=== PATIENT | male | born 1970 | race Caucasian/White ===

== ENCOUNTER 2018-11-17 16:45 | Inpatient (IN) ==
--- NOTE | 2018-11-17 17:14 | Emergency Department Note ---
Disposition Clinical Impression: Acute opioid withdrawal, Suicidal ideation Disposition: Still a Patient Condition: Undetermined Referrals: NONE,PCP [Primary Care Provider] - Forms: ED Satisfaction Letter Time of Disposition: 20:31 Psych HPI - General Chief Complaint: ED Psychiatric Symptoms Stated Complaint: SI Time Seen by Provider: 11/17/18 16:58 Source: patient, family Mode of arrival: ambulatory Limitations: no limitations Nursing Notes Reviewed: Yes Vital Signs Reviewed: Yes - History of Present Illness HPI Narrative: 48-year-old male with no significant past medical history current every day smoker presenting for suicidal ideation. Patient states that he is currently withdrawing from painkillers which she has been addicted for several years. Patient states that when he goes within 24 hours without these drugs that he becomes suicidal. Patient admits to active ideation with a plan although he does not divulge the contents of his plan of how he wants to kill himself stating that he tries not to think about it due to having kids. Patient states that he is addicted to Percocet and Vicodin as "whenever I get my hands on." Patient states that he realized that he has a problem where he is spending all of his money on painkillers and is going to work simply to be able to afford his drugs. Patient denies homicidal ideation or active hallucinations, he admits to nausea and a feeling of generalized malaise Pt complaint: suicidal ideation, feels depressed Onset (ago): day(s) Duration: getting worse History of similar episodes: Yes Worsens with: other (Withdrawal) Alleged intoxication: No Associated Psychiatric Symptoms: depression, suicidal ideation Associated symptoms: Reports: nausea Traumatic symptoms: denies traumatic injury Treatments prior to arrival: none Self harm or harm to others: admits thoughts of self harm, has plan Review of Systems: *See History of Present Illness for more detail Constitutional: Denies: fever, chills Cardiovascular: Denies: chest pain Respiratory: Denies: dyspnea Gastrointestinal: Admits to nausea Denies: abdominal pain, vomiting, diarrhea, constipation, hematemesis, melena, hematochezia Genitourinary: Denies: hematuria Musculoskeletal: Denies: back pain, neck pain Integumentary: Denies: rash Neurological: Admits to headache and lightheadedness/dizziness Denies: weakness, numbness, paresthesias, difficulty with ambulation. Endocrine: Admits fatigue Psychiatric: Patient admits to suicidal ideation. All systems ED: reviewed and negative except as stated. Review of Systems: As Per HPI Past Medical History - Past Medical History Source: patient Physical Exam Constitutional: No acute distress, [id number], engaged to conversation, speech is fluid, answers questions appropriately Neuro: GCS 15, no overt focal neurological deficits Head: Atraumatic, normocephalic Eyes: Pupils equal, round and reactive to light, no scleral icterus, no conjunctival injection Neck: Trachea midline without deviation. Anterior neck is supple without swelling. *Chest: Symmetric chest wall rise *Heart: Cardiac rhythm and rate are regular with S1 and S2 , no S3 or S4 appreciated, no murmurs, gallops, rubs, or clicks. *Lungs: Lungs are clear to auscultation bilaterally, without accessory muscle use or prolonged expiratory phase. No wheezes, rhonchi or stridor appreciated. Abdomen: Abdomen is flat, soft to palpation, normal bowel sounds. No abdominal b ruit auscultated. Non-distended, non-rigid, no organomegaly, no ascites appreciated. No pulsatile mass, no tenderness or guarding to palpation in all four quadrants, no rebound Extremities: Normal capillary refill without evidence of pedal edema, joint swelling or erythema. Pulses/motor/sensory intact in all 4 extremities. Psychiatric exam: Patient is teary and crying in room. Appears depressed. No overt signs of hallucination. Integumentary: warm, dry, intact, normal color. No rash, cyanosis, diaphoresis, erythema, or pallor - General Limitations: no limitations General appearance: alert, in distress Course Course Narrative: [place] slipped is on file. CBC, BMP, urinalysis, urine drug screen, acetaminophen, salicylate, ethanol Psychiatric services will be consulted pending medical clearance. Vital Signs Temperature 98.6 F 11/17/18 16:50 Pulse Rate 92 11/17/18 16:50 Respiratory Rate 20 11/17/18 16:50 Blood Pressure 145/85 11/17/18 16:50 O2 Sat by Pulse Oximetry 96 11/17/18 16:50 Temperature 98.6 F 11/17/18 17:58 Pulse Rate 92 11/17/18 17:58 Respiratory Rate 20 11/17/18 17:58 Blood Pressure 145/85 11/17/18 17:58 O2 Sat by Pulse Oximetry 96 11/17/18 17:58 Oxygen Delivery Oxygen Delivery Room Air Psych - MDM Narrative Medical decision making narrative: Patient laboratories are unremarkable for acute pathology. Patient is medically cleared for psychiatric evaluation. Patient will be signed out to the care of Dr. Girish Hinds at the end of my shift. Please see documentation by this physician for further evaluation, management, and final disposition. - Lab Data Result diagrams: 11/17/18 17:36 11/17/18 17:36 Lab Results 11/17/18 11/17/18 11/17/18 Range/Units 17:36 17:36 18:37 WBC 7.4 (4.3-11.1) K/mcL RBC 5.38 (4.19-5.50) M/mcL Hgb 16.1 (12.9-16.9) g/dL Hct 47.7 (37.5-50.1) % MCV 88.7 (83.0-100.0) fL MCH 29.9 (28.0-33.3) pg MCHC 33.8 (31.6-35.5) g/dL RDW 12.6 (11.5-14.5) % Plt Count 185 (140-400) K/mcL MPV 10.0 (9.4-12.4) fL Immature Gran % 0.4 (0-4) % Seg Neutrophils % 78.4 % Lymphocytes % 14.7 % Monocytes % 5.5 % Eosinophils % 0.5 % Basophils % 0.5 % Neutrophils # 5.8 (1.6-8.9) K/mcL Lymphocytes # 1.1 (0.6-4.6) K/mcL Monocytes # 0.4 (0.0-1.3) K/mcL Eosinophils # 0.0 (0.0-0.6) K/mcL Basophils # 0.0 (0.0-0.2) K/mcL Sodium 139 (136-145) mEq/L Potassium 4.1 (3.5-5.1) mEq/L Chloride 110 H (98-107) mEq/L Carbon Dioxide 25 (23-29) mEq/L BUN 8 (6-20) mg/dL Creatinine 0.73 (0.70-1.30) mg/dL Est GFR ( Amer) > 60 (> 60) Est GFR (Non-Af Amer) > 60 (> 60) BUN/Creatinine Ratio 11 (6-26) Glucose 98 (70-105) mg/dL Calculated Osmolality 286 (280-300) Calcium 9.7 (8.6-10.3) mg/dL Urine Color Yellow (Yellow) Urine Clarity Clear (Clear) Urine pH 6.0 (5.0-8.0) pH Units Ur Specific [place] 1.012 (1.010-1.025) Urine Protein Negative (Neg-Trace) mg/dL Urine Glucose (UA) Normal (Normal) mg/dL Urine Ketones Negative (Negative) mg/dL Urine Blood Small H (Negative) Urine Nitrite Negative (Negative) Urine Bilirubin Negative (Negative) Urine Urobilinogen Normal (Normal) mg/dL Ur Leukocyte Esterase Negative (Negative) Urine Microscopic RBC 0-3 (0-3) per hpf Urine Microscopic WBC 0-3 (0-3) per hpf Ur Squamous Epith Cells Many H (None-Few) per lpf Urine Bacteria None Seen (None-Few) per hpf Hyaline Casts None Seen (None-Few) per lpf Ur Culture Indicated? NO (NO) Salicylates < 2.5 L (15.0-30.0) mg/dL Urine Opiates Screen (Sfhlsj=158) ng/mL Acetaminophen < 10 L (10-20) mcg/mL Ur Barbiturates Screen (Ueulpc=085) ng/mL Ur Phencyclidine Scrn (Cutoff=25) ng/mL Ur Amphetamines Screen (Axguyd=2333) ng/mL U Benzodiazepines Scrn (Glhkul=467) ng/mL Urine Cocaine Screen (Cutoff= 300) ng/mL U Marijuana (THC) Screen (Cutoff = 50) ng/mL Ur Drug Screen Interp Ethyl Alcohol < 10 (Less than 10) mg/dL 11/17/18 Range/Units 18:39 WBC (4.3-11.1) K/mcL RBC (4.19-5.50) M/mcL Hgb (12.9-16.9) g/dL Hct (37.5-50.1) % MCV (83.0-100.0) fL MCH (28.0-33.3) pg MCHC (31.6-35.5) g/dL RDW (11.5-14.5) % Plt Count (140-400) K/mcL MPV (9.4-12.4) fL Immature Gran % (0-4) % Seg Neutrophils % % Lymphocytes % % Monocytes % % Eosinophils % % Basophils % % Neutrophils # (1.6-8.9) K/mcL Lymphocytes # (0.6-4.6) K/mcL Monocytes # (0.0-1.3) K/mcL Eosinophils # (0.0-0.6) K/mcL Basophils # (0.0-0.2) K/mcL Sodium (136-145) mEq/L Potassium (3.5-5.1) mEq/L Chloride (98-107) mEq/L Carbon Dioxide (23-29) mEq/L BUN (6-20) mg/dL Creatinine (0.70-1.30) mg/dL Est GFR ( Amer) (> 60) Est GFR (Non-Af Amer) (> 60) BUN/Creatinine Ratio (6-26) Glucose (70-105) mg/dL Calculated Osmolality (280-300) Calcium (8.6-10.3) mg/dL Urine Color (Yellow) Urine Clarity (Clear) Urine pH (5.0-8.0) pH Units Ur Specific [place] (1.010-1.025) Urine Protein (Neg-Trace) mg/dL Urine Glucose (UA) (Normal) mg/dL Urine Ketones (Negative) mg/dL Urine Blood (Negative) Urine Nitrite (Negative) Urine Bilirubin (Negative) Urine Urobilinogen (Normal) mg/dL Ur Leukocyte Esterase (Negative) Urine Microscopic RBC (0-3) per hpf Urine Microscopic WBC (0-3) per hpf Ur Squamous Epith Cells (None-Few) per lpf Urine Bacteria (None-Few) per hpf Hyaline Casts (None-Few) per lpf Ur Culture Indicated? (NO) Salicylates (15.0-30.0) mg/dL Urine Opiates Screen Negative (Rxdqja=842) ng/mL Acetaminophen (10-20) mcg/mL Ur Barbiturates Screen Negative (Fgxyof=224) ng/mL Ur Phencyclidine Scrn Negative (Cutoff=25) ng/mL Ur Amphetamines Screen Negative (Iknpoi=1989) ng/mL U Benzodiazepines Scrn Negative (Rgmouh=103) ng/mL Urine Cocaine Screen Negative (Cutoff= 300) ng/mL U Marijuana (THC) Screen Negative (Cutoff = 50) ng/mL Ur Drug Screen Interp See Below Ethyl Alcohol (Less than 10) mg/dL Psychiatric Medical Clearance - Medical Clearance Checklist Medical History: No Social History Section defined Current Vitals: Last Vital Signs Temp 98.6 F 11/17/18 17:58 Pulse 92 11/17/18 17:58 Resp 20 11/17/18 17:58 BP 145/85 11/17/18 17:58 Pulse Ox 96 11/17/18 17:58 Psychiatric Lab Panel: Drug Levels and Toxicity 11/17/18 11/17/18 17:36 18:39 Urine Opiates Screen Negative Acetaminophen < 10 L Ur Barbiturates Screen Negative Ur Phencyclidine Scrn Negative Ur Amphetamines Screen Negative U Benzodiazepines Scrn Negative Urine Cocaine Screen Negative U Marijuana (THC) Screen Negative Ethyl Alcohol < 10 Abnormal Labs: Abnormal lab results Chloride 110 mEq/L (98-107) H 11/17/18 17:36 Small (Negative) H 11/17/18 18:37 Ur Squamous Epith Cells Many per lpf (None-Few) H 11/17/18 18:37 Salicylates < 2.5 mg/dL (15.0-30.0) L 11/17/18 17:36 Acetaminophen < 10 mcg/mL (10-20) L 11/17/18 17:36 Statement of Medical Clearance: I have evaluated the patient, reviewed diagnostic information, and certify that the patient's medical condition is sufficiently stable that transfer to the psychiatric unit does not pose a significant risk of deterioration.
[2018-11-17] MEDS ORDERED: *HR* Buprenorphine HCl 2 MG SUBLINGUAL TABLET SL STA (17:16)
--- NOTE | 2018-11-17 17:25 | Emergency Department Note ---
Disposition Clinical Impression: Acute opioid withdrawal, Suicidal ideation Disposition: Still a Patient Forms: ED Satisfaction Letter Time of Disposition: 17:26 General Adult HPI - General Chief complaint: ED Psychiatric Symptoms Stated complaint: SI Time Seen by Provider: 11/17/18 16:58 Source: patient, family Mode of arrival: ambulatory Limitations: no limitations Nursing Notes Reviewed: Yes Vital Signs Reviewed: Yes - History of Present Illness HPI Narrative: Attestation note: Patient was seen with the emergency medicine resident/nurse practitioner/physician botany laboratory assistant/transitional resident/medical student: Dr.SAMUEL HERNANDEZ I have personally performed a face to face evaluation on this patient. I have reviewed and agree with history and physical examination patient management and disposition. I was present for the significant portions of the performance and interpretation of procedures and EKGs. Briefly the salient points of the case are as follows: 48-year-old male history of chronic opioid dependence presents emergency department suicidal ideations. He said this happens whenever he can get his medications were street drugs. He said he mostly uses Percocet or "quivering get his hands on". He can methadone. Has not had any narcotics for about 24 hours he states and active withdrawal who looks moderately uncomfortable. Patient is no acute suicidal plan denies homicidal ideations. Patient was offered and accepted Suboxone he will be getting 8 mg. Patient will then undergo medical screening. Physical examination is otherwise benign and then a mental health evaluation. Disposition pending. Pain Scale: 10 Physical Exam - General Limitations: no limitations General appearance: alert, in distress Course Vital Signs Temperature 98.6 F 11/17/18 16:50 Pulse Rate 92 11/17/18 16:50 Respiratory Rate 11/17/18 16:50 Blood Pressure 145/85 11/17/18 16:50 O2 Sat by Pulse Oximetry 11/17/18 16:50 Temperature 98.6 F 11/17/18 16:50 Pulse Rate 92 11/17/18 16:50 Respiratory Rate 11/17/18 16:50 Blood Pressure 145/85 11/17/18 16:50 O2 Sat by Pulse Oximetry 11/17/18 16:50 Oxygen Delivery Oxygen Delivery Room Air
[2018-11-17 17:52] LABS: Basophils % 0.5 %; Eosinophils % 0.5 %; Hematocrit 47.7 % (37.5-50.1); Hemoglobin 16.1 g/dL (12.9-16.9); Immature Granulocytes % 0.4 % (0-4); Lymphocytes # 1.1 K/mcL (0.6-4.6); Lymphocytes % 14.7 %; Mean Corpuscular HGB Conc 33.8 g/dL (31.6-35.5); Mean Corpuscular Hemoglobin 29.9 pg (28.0-33.3); Mean Corpuscular Volume 88.7 fL (83.0-100.0); Monocytes # 0.4 K/mcL (0.0-1.3); Monocytes % 5.5 %; Neutrophils # 5.8 K/mcL (1.6-8.9); Platelet Count 185 K/mcL (140-400); Red Blood Count 5.38 M/mcL (4.19-5.50); Red Cell Distribution Width 12.6 % (11.5-14.5); Segmented Neutrophils % 78.4 %; White Blood Count 7.4 K/mcL (4.3-11.1)
[2018-11-17 18:09] LABS: Acetaminophen < 10 mcg/mL (10-20); BUN/Creatinine Ratio 11 (6-26); Blood Urea Nitrogen 8 mg/dL (6-20); Calcium 9.7 mg/dL (8.6-10.3); Carbon Dioxide 25 mEq/L (23-29); Chloride 110 mEq/L (98-107); Ethanol < 10 mg/dL (Less than 10); Glucose 98 mg/dL (70-105); Osmolality,Calculated 286 (280-300); Potassium 4.1 mEq/L (3.5-5.1); Salicylate < 2.5 mg/dL (15.0-30.0); Sodium 139 mEq/L (136-145); eGFR For African Americans > 60 (> 60); eGFR For Non-African Americans > 60 (> 60)
[2018-11-17] MEDS ORDERED: Nicotine 21 MG PATCH.TD24 TD SCH (18:30)
[2018-11-17 18:56] LABS: Bilirubin,Urine Negative (Negative); Blood,Urine Small (Negative); Clarity,Urine Clear (Clear); Color,Urine Yellow (Yellow); Glucose,Urine (UA) Normal (Normal); Ketones,Urine Negative (Negative); Leukocyte Esterase,Urine Negative (Negative); Nitrite,Urine Negative (Negative); Protein,Urine Negative (Neg-Trace); Specific Gravity,Urine 1.012 (1.010-1.025); Urobilinogen,Urine Normal (Normal)
[2018-11-17 19:00] LABS: Bacteria,Urine None Seen per hpf (None-Few); Hyaline Casts,Urine None Seen per lpf (None-Few); RBC,Urine 0-3 per hpf (0-3); Squamous Epithelial Cell,Urine Many per lpf (None-Few); WBC,Urine 0-3 per hpf (0-3)
[2018-11-17 19:03] LABS: Amphetamine Screen,Urine Negative ng/mL (Cutoff=1000); Barbiturate Screen,Urine Negative ng/mL (Cutoff=200); Benzodiazepines Screen,Urine Negative ng/mL (Cutoff=200); Cannabinoid Screen,Urine Negative ng/mL (Cutoff = 50); Cocaine Screen,Urine Negative ng/mL (Cutoff= 300); Opiate Screen,Urine Negative ng/mL (Cutoff=300); Phencyclidine Screen,Urine Negative ng/mL (Cutoff=25)
[2018-11-17] MEDS ORDERED: *HR* LORazepam 2 MG/ML VIAL IM PRN (21:34)
[2018-11-17] MEDS ORDERED: *HR* LORazepam 1 MG TABLET PO PRN (21:34)
[2018-11-17] MEDS ORDERED: Haloperidol Lactate 5 MG/ML VIAL IM PRN (21:34)
[2018-11-17] MEDS ORDERED: Mag Hydrox/Al Hydrox/Simeth 30 ML UDC PO PRN (21:34)
[2018-11-17] MEDS ORDERED: Ibuprofen 400 MG TABLET PO PRN (21:34)
[2018-11-17] MEDS ORDERED: MOM Conc 10 ML UD.LIQ PO PRN (21:34)
[2018-11-17] MEDS: traZODone 50 MG TABLET PO PRN (22:39)
[2018-11-17] MEDS: hydrOXYzine pamoate 25 MG CAPSULE PO PRN (22:39)
--- NOTE | 2018-11-18 08:06 | Psychiatry History & Physical ---
Date of Encounter: 11/18/18 Time of Encounter: 08:04 History of Present Illness Patient Stated Chief Complaint: "They thought I would hurt myself" Medicare Admission Attestation: For traditional Medicare patients the provided hospital inpatient services are reasonable and necessary and in the case of services not specified as inpatient-only under 42 CFR 419.22 (n), that they are appropriately provided as inpatient services in accordance 42 CFR 412.3. For Critical Access Hospital the patient may reasonably be expected to be discharged or transferred to a hospital within 96 hours after admission to the Critical Access Hospital. Admitted From: Emergency Dept Plans for Post Hospital Care: Home History of Present Illness: Mr. Cervantes is a 48 year old male 4 with no significant past medical history current every day smoker presenting for suicidal ideation. Patient states that he is currently withdrawing from painkillers which she has been addicted for several years. Patient states that when he goes 24 hours without these drugs that he becomes suicidal. Patient admits to active ideation with a plan to use carbon monoxide. Patient states that he is addicted to Percocet and Vicodin and "whatever I get my hands on." Patient states that he realized that he has a problem where he is spending all of his money on painkillers and is going to work simply to be able to afford his drugs. Patient denies homicidal ideation or active hallucinations, he admits to nausea and a feeling of generalized malaise. He got Suboxone 8 mg in the ER yesterday and this helped considerably. This morning he denies suicidal ideations. He said he has made comments before but it was just out of feeling hopeless related to the drugs. He reports some sadness, decreased interest, feelings of guilt and worthlessness. He reports he has been using opiates for 7-10 years. He denies manic symptoms or psychotic symptoms. Past Med Surg Social Fam HX - Past Medical History Source: patient Medical history: no medical history - Past Psychiatric History Psychiatric history: Reports: no psych history Past psychiatric history details: He said that he is never been in a psychiatric hospital or inpatient addiction facility. He has no prior medication trials. He has not been linked with psychiatric orders therapy services. He has no prior suicide attempts. Family psychiatric history: No Family History of Suicide: None - Social History Smoking Status: Current every day smoker Smokeless Tobacco Status: No Alcohol use: none Drug use: prescription drug abuse Occupational status: unemployed Current living situation: Home - Independent Activity Level: Independent ambulation Recent Out of Country Travel Within the Last 8 Weeks: No Exposure or Possible Exposure to Illness During Travel: No Additional social history: He lives with his and 17 and 13-year-old children. 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 He denies any legal history. Medications & Allergies Allergy/AdvReac Type Severity Reaction Status Date / Time No Known Allergies Allergy Verified 11/17/18 21:33 Review of Systems Constitutional: Reports: chills, weakness Eyes: Denies: eye pain Ears, Nose, Throat: Denies: ear pain Cardiovascular: Denies: chest pain Respiratory: Denies: cough Gastrointestinal: Reports: abdominal pain, nausea Genitourinary male: Denies: urgency Musculoskeletal: Reports: myalgia Integumentary: Denies: rash Neurological: Reports: weakness Psychiatric: Reports: depression, abnormal sleep pattern, suicidal ideation, anhedonia, hopelessness Endocrine: Reports: fatigue Hematologic/Lymphatic: Denies: easy bleeding Allergic/Immunologic: Denies: facial swelling Exam - HEENT Head exam IM: Present: atraumatic Eye exam IM: Present: EOMI ENT exam IM: Present: mucous membranes moist - Neurological Neurological exam: Present: CN II-XII intact - Respiratory Respiratory exam IM: Absent: respiratory distress - GI/Abdominal GI/Abdominal exam IM: Present: no peritoneal signs - Extremities Extremities exam IM: Present: full ROM - Skin Skin exam IM: Absent: abrasion - Constitutional Vitals: Temp Pulse Resp BP Pulse Ox 98.3 F 84 18 131/91 97 11/17/18 22:09 11/17/18 22:09 11/17/18 22:09 11/17/18 22:09 11/17/18 22:09 General appearance: age & developmentally appropriate, disheveled - Musculoskeletal Gait: slow Station: stooped Strength & Tone: normal for patient - Psychiatric Patient Orientation: Yes Person, Yes Time, Yes Place Level of alertness: Alert Behavior: tearful Psychomotor activity: Slowed Eye Contact: Minimal Contact Mood Description: Depressed Patient description of mood: sad Affect description: dysphoric Speech Volume: Soft/Quiet Speech pattern: slowed Language & Vocabulary: consistent with education Thought Process: Linear, Goal Oriented Thought Content: Yes Suicidal ideation, No Homicidal ideation Perceptual Disturbances: No Auditory hallucinations, No Visual hallucinations Attention Span Ability: Capable of Focused Attention Memory Description: Grossly Intact Patient Reliability: Reliable Historian Fund of knowledge: Yes abstraction ability, Yes average, Yes aware of current events Intelligence Estimate: Average Judgment: Limited Insight: Minimal Results - Drug Levels and Toxicology Drug Levels and Toxicology: Drug Levels and Toxicity 11/17/18 11/17/18 17:36 18:39 Urine Opiates Screen Negative Acetaminophen < 10 L Ur Barbiturates Screen Negative Ur Phencyclidine Scrn Negative Ur Amphetamines Screen Negative U Benzodiazepines Scrn Negative Urine Cocaine Screen Negative U Marijuana (THC) Screen Negative Ethyl Alcohol < 10 - Labs Labs: Laboratory Last Values WBC 7.4 K/mcL (4.3-11.1) 11/17/18 17:36 RBC 5.38 M/mcL (4.19-5.50) 11/17/18 17:36 Hgb 16.1 g/dL (12.9-16.9) 11/17/18 17:36 Hct 47.7 % (37.5-50.1) 11/17/18 17:36 MCV 88.7 fL (83.0-100.0) 11/17/18 17:36 MCH 29.9 pg (28.0-33.3) 11/17/18 17:36 MCHC 33.8 g/dL (31.6-35.5) 11/17/18 17:36 RDW 12.6 % (11.5-14.5) 11/17/18 17:36 Plt Count 185 K/mcL (140-400) 11/17/18 17:36 MPV 10.0 fL (9.4-12.4) 11/17/18 17:36 Immature Gran % 0.4 % (0-4) 11/17/18 17:36 Seg Neutrophils % 78.4 % 11/17/18 17:36 14.7 % 11/17/18 17:36 5.5 % 11/17/18 17:36 0.5 % 11/17/18 17:36 0.5 % 11/17/18 17:36 5.8 K/mcL (1.6-8.9) 11/17/18 17:36 1.1 K/mcL (0.6-4.6) 11/17/18 17:36 0.4 K/mcL (0.0-1.3) 11/17/18 17:36 0.0 K/mcL (0.0-0.6) 11/17/18 17:36 0.0 K/mcL (0.0-0.2) 11/17/18 17:36 Sodium 139 mEq/L (136-145) 11/17/18 17:36 Potassium 4.1 mEq/L (3.5-5.1) 11/17/18 17:36 Chloride 110 mEq/L (98-107) H 11/17/18 17:36 Carbon Dioxide 25 mEq/L (23-29) 11/17/18 17:36 BUN 8 mg/dL (6-20) 11/17/18 17:36 0.73 mg/dL (0.70-1.30) 11/17/18 17:36 Est GFR ( Amer) > 60 (> 60) 11/17/18 17:36 Est GFR (Non-Af Amer) > 60 (> 60) 11/17/18 17:36 11 (6-26) 11/17/18 17:36 Glucose 98 mg/dL (70-105) 11/17/18 17:36 286 (280-300) 11/17/18 17:36 Calcium 9.7 mg/dL (8.6-10.3) 11/17/18 17:36 Yellow (Yellow) 11/17/18 18:37 Clear (Clear) 11/17/18 18:37 6.0 pH Units (5.0-8.0) 11/17/18 18:37 Ur Specific [place] 1.012 (1.010-1.025) 11/17/18 18:37 Negative mg/dL (Neg-Trace) 11/17/18 18:37 Normal mg/dL (Normal) 11/17/18 18:37 Negative mg/dL (Negative) 11/17/18 18:37 Small (Negative) H 11/17/18 18:37 Negative (Negative) 11/17/18 18:37 Negative (Negative) 11/17/18 18:37 Normal mg/dL (Normal) 11/17/18 18:37 Ur Leukocyte Esterase Negative (Negative) 11/17/18 18:37 0-3 per hpf (0-3) 11/17/18 18:37 0-3 per hpf (0-3) 11/17/18 18:37 Ur Squamous Epith Cells Many per lpf (None-Few) H 11/17/18 18:37 None Seen per hpf (None-Few) 11/17/18 18:37 Hyaline Casts None Seen per lpf (None-Few) 11/17/18 18:37 Ur Culture Indicated? NO (NO) 11/17/18 18:37 Salicylates < 2.5 mg/dL (15.0-30.0) L 11/17/18 17:36 Negative ng/mL (Qodcwc=831) 11/17/18 18:39 Acetaminophen < 10 mcg/mL (10-20) L 11/17/18 17:36 Ur Barbiturates Screen Negative ng/mL (Sdcfjj=399) 11/17/18 18:39 Ur Phencyclidine Scrn Negative ng/mL (Cutoff=25) 11/17/18 18:39 Ur Amphetamines Screen Negative ng/mL (Twbwrs=7140) 11/17/18 18:39 U Benzodiazepines Scrn Negative ng/mL (Shzwsk=884) 11/17/18 18:39 Negative ng/mL (Cutoff= 300) 11/17/18 18:39 U Marijuana (THC) Screen Negative ng/mL (Cutoff = 50) 11/17/18 18:39 Ur Drug Screen Interp See Below 11/17/18 18:39 Ethyl Alcohol < 10 mg/dL (Less than 10) 11/17/18 17:36 Assessment and Plan (1) Depression Current visit: Yes Status: Acute Plan: Admit inpatient for safety and stabilization, Close observation, Suicide Precautions per unit protocol, Encourage participation in unit milieu, Group Therapy, Monitor sleep, Monitor appetite Additional Plan: We discussed antidepressant options and at this time he wants to see how he does with the Suboxone alone. Encourage group attendance. Reviewed Interval hx Review any current labs Pt had an opportunity to ask questions and discuss current treatment plan. Supportive therapy was provided Pt encouraged to consider group or individual therapy Pt was in agreement with treatment plan. Pt was educated on the risks benefits and side effects of current medications and alternatives as well as the risks and benefits of no medication. AIMS = 0 Risks, benefits, side effects, alternatives discussed w/pt: Yes Patient agreeable to treatment: Yes Plans for Post Hospital Care: Home Estimated Length of Stay (Days): 5 Qualifiers: Depression Type: major depressive disorder Major depression recurrence: recurrent Active/Remission status: currently active Major depression episode severity: severe Psychotic features: without psychotic features Qualified Code(s): F33.2 - Major depressive disorder, recurrent severe without psychotic features (2) Opiate abuse, continuous Current visit: Yes Status: Acute Plan: Admit inpatient for safety and stabilization, Close observation, Suicide Precautions per unit protocol, Encourage participation in unit milieu, Group Therapy, Monitor sleep, Monitor appetite Additional Plan: Subutex 8 BID linkage to an outpt program
[2018-11-18] MEDS: Nicotine 21 MG PATCH.TD24 TD SCH (09:44)
[2018-11-18] MEDS: *HR* Buprenorphine HCl 2 MG SUBLINGUAL TABLET SL SCH ×2 (11:02→20:49)
[2018-11-18] MEDS: traZODone 50 MG TABLET PO PRN (22:28)
[2018-11-18] MEDS: hydrOXYzine pamoate 25 MG CAPSULE PO PRN (22:28)
--- NOTE | 2018-11-19 08:15 | Discharge Summary ---
Date of Encounter: 11/19/18 Time of Encounter: 09:10 Diagnosis - Discharge Diagnosis (1) Depression Status: Acute Qualifiers: Depression Type: major depressive disorder Major depression recurrence: r ecurrent Active/Remission status: currently active Major depression episode severity: severe Psychotic features: without psychotic features Qualified Code(s): F33.2 - Major depressive disorder, recurrent severe without psychotic features (2) Opiate abuse, continuous Status: Acute Medications - Discharge Medications Prescriptions: hydrOXYzine pamoate [HydrOXYzine Pamoate] 25 mg PO TID PRN #45 capsule PRN Reason: Anxiety traZODone [TraZODone] 50 mg PO HS PRN #45 tablet PRN Reason: Insomnia Buprenorphine HCl [Subutex] 8 mg SL BID tab.subl 11/19/18 [Rx] hydrOXYzine pamoate [HydrOXYzine Pamoate] 25 mg PO TID PRN #45 capsule 11/19/18 [Rx] traZODone [TraZODone] 50 mg PO HS PRN #45 tablet 11/19/18 [Rx] Allergy/AdvReac Type Severity Reaction Status Date / Time No Known Allergies Allergy Verified 11/17/18 21:33 Results Procedures and tests throughout hospitalization: Completed Lab Orders Category Date Time Status Acetaminophen Stat Lab 11/17/18 17:36 Completed Basic Metabolic Panel Stat Lab 11/17/18 17:36 Completed Complete Blood Count [HEME] Stat Lab 11/17/18 17:36 Completed Drug Screen, Urine [UCHEM] Stat Lab 11/17/18 18:39 Completed Ethanol Stat Lab 11/17/18 17:36 Completed Salicylate Stat Lab 11/17/18 17:36 Completed Urinalysis Reflex Cult & Micro [URIN] Stat Lab 11/17/18 18:37 Completed Lab Results 11/17/18 11/17/18 11/17/18 Range/Units 17:36 17:36 18:37 WBC 7.4 (4.3-11.1) K/mcL RBC 5.38 (4.19-5.50) M/mcL Hgb 16.1 (12.9-16.9) g/dL Hct 47.7 (37.5-50.1) % MCV 88.7 (83.0-100.0) fL MCH 29.9 (28.0-33.3) pg MCHC 33.8 (31.6-35.5) g/dL RDW 12.6 (11.5-14.5) % Plt Count 185 (140-400) K/mcL MPV 10.0 (9.4-12.4) fL Immature Gran % 0.4 (0-4) % Seg Neutrophils % 78.4 % Lymphocytes % 14.7 % Monocytes % 5.5 % Eosinophils % 0.5 % Basophils % 0.5 % Neutrophils # 5.8 (1.6-8.9) K/mcL Lymphocytes # 1.1 (0.6-4.6) K/mcL Monocytes # 0.4 (0.0-1.3) K/mcL Eosinophils # 0.0 (0.0-0.6) K/mcL Basophils # 0.0 (0.0-0.2) K/mcL Sodium 139 (136-145) mEq/L Potassium 4.1 (3.5-5.1) mEq/L Chloride 110 H (98-107) mEq/L Carbon Dioxide 25 (23-29) mEq/L BUN 8 (6-20) mg/dL Creatinine 0.73 (0.70-1.30) mg/dL Est GFR ( Amer) > 60 (> 60) Est GFR (Non-Af Amer) > 60 (> 60) BUN/Creatinine Ratio 11 (6-26) Glucose 98 (70-105) mg/dL Calculated Osmolality 286 (280-300) Calcium 9.7 (8.6-10.3) mg/dL Urine Color Yellow (Yellow) Urine Clarity Clear (Clear) Urine pH 6.0 (5.0-8.0) pH Units Ur Specific [place] 1.012 (1.010-1.025) Urine Protein Negative (Neg-Trace) mg/dL Urine Glucose (UA) Normal (Normal) mg/dL Urine Ketones Negative (Negative) mg/dL Urine Blood Small H (Negative) Urine Nitrite Negative (Negative) Urine Bilirubin Negative (Negative) Urine Urobilinogen Normal (Normal) mg/dL Ur Leukocyte Esterase Negative (Negative) Urine Microscopic RBC 0-3 (0-3) per hpf Urine Microscopic WBC 0-3 (0-3) per hpf Ur Squamous Epith Cells Many H (None-Few) per lpf Urine Bacteria None Seen (None-Few) per hpf Hyaline Casts None Seen (None-Few) per lpf Ur Culture Indicated? NO (NO) Salicylates < 2.5 L (15.0-30.0) mg/dL Urine Opiates Screen (Lpzqoi=321) ng/mL Acetaminophen < 10 L (10-20) mcg/mL Ur Barbiturates Screen (Ankpot=125) ng/mL Ur Phencyclidine Scrn (Cutoff=25) ng/mL Ur Amphetamines Screen (Casyaf=7167) ng/mL U Benzodiazepines Scrn (Lpqzpw=297) ng/mL Urine Cocaine Screen (Cutoff= 300) ng/mL U Marijuana (THC) Screen (Cutoff = 50) ng/mL Ur Drug Screen Interp Ethyl Alcohol < 10 (Less than 10) mg/dL 11/17/18 Range/Units 18:39 WBC (4.3-11.1) K/mcL RBC (4.19-5.50) M/mcL Hgb (12.9-16.9) g/dL Hct (37.5-50.1) % MCV (83.0-100.0) fL MCH (28.0-33.3) pg MCHC (31.6-35.5) g/dL RDW (11.5-14.5) % Plt Count (140-400) K/mcL MPV (9.4-12.4) fL Immature Gran % (0-4) % Seg Neutrophils % % Lymphocytes % % Monocytes % % Eosinophils % % Basophils % % Neutrophils # (1.6-8.9) K/mcL Lymphocytes # (0.6-4.6) K/mcL Monocytes # (0.0-1.3) K/mcL Eosinophils # (0.0-0.6) K/mcL Basophils # (0.0-0.2) K/mcL Sodium (136-145) mEq/L Potassium (3.5-5.1) mEq/L Chloride (98-107) mEq/L Carbon Dioxide (23-29) mEq/L BUN (6-20) mg/dL Creatinine (0.70-1.30) mg/dL Est GFR ( Amer) (> 60) Est GFR (Non-Af Amer) (> 60) BUN/Creatinine Ratio (6-26) Glucose (70-105) mg/dL Calculated Osmolality (280-300) Calcium (8.6-10.3) mg/dL Urine Color (Yellow) Urine Clarity (Clear) Urine pH (5.0-8.0) pH Units Ur Specific [place] (1.010-1.025) Urine Protein (Neg-Trace) mg/dL Urine Glucose (UA) (Normal) mg/dL Urine Ketones (Negative) mg/dL Urine Blood (Negative) Urine Nitrite (Negative) Urine Bilirubin (Negative) Urine Urobilinogen (Normal) mg/dL Ur Leukocyte Esterase (Negative) Urine Microscopic RBC (0-3) per hpf Urine Microscopic WBC (0-3) per hpf Ur Squamous Epith Cells (None-Few) per lpf Urine Bacteria (None-Few) per hpf Hyaline Casts (None-Few) per lpf Ur Culture Indicated? (NO) Salicylates (15.0-30.0) mg/dL Urine Opiates Screen Negative (Scjveb=811) ng/mL Acetaminophen (10-20) mcg/mL Ur Barbiturates Screen Negative (Dwrdjg=502) ng/mL Ur Phencyclidine Scrn Negative (Cutoff=25) ng/mL Ur Amphetamines Screen Negative (Ycfkio=8068) ng/mL U Benzodiazepines Scrn Negative (Ypmwsw=845) ng/mL Urine Cocaine Screen Negative (Cutoff= 300) ng/mL U Marijuana (THC) Screen Negative (Cutoff = 50) ng/mL Ur Drug Screen Interp See Below Ethyl Alcohol (Less than 10) mg/dL Provider Date of admission: 11/17/18 21:13 Primary care physician: PCP NONE Discharging clinician: Amada Peters Psychiatry Exam - Constitutional Vitals: Temp Pulse Resp BP Pulse Ox 98.9 F 75 18 119/85 99 11/18/18 20:18 11/18/18 20:18 11/18/18 20:18 11/18/18 20:18 11/18/18 20:18 General appearance: age & developmentally appropriate, well-groomed, well- nourished - Musculoskeletal Gait: normal Station: relaxed Strength & Tone: normal for patient - Psychiatric Patient Orientation: Yes Person, Yes Time, Yes Place Level of alertness: Alert Behavior: calm, cooperative Psychomotor activity: Normal Eye Contact: Maintains Eye Contact Mood Description: Euthymic/stable Patient description of mood: Good Affect description: congruent with mood, full range Speech Volume: Normal Speech pattern: normal rate, normal rhythm, normal tone, fluent, spontaneous Language & Vocabulary: consistent with education Thought Process: Linear, Goal Oriented Thought Content: No Suicidal ideation, No Homicidal ideation, No Overt delusions Perceptual Disturbances: No Auditory hallucinations, No Visual hallucinations Attention Span Ability: Capable of Focused Attention Memory Description: Grossly Intact Patient Reliability: Reliable Historian Fund of knowledge: Yes abstraction ability, Yes aware of current events Intelligence Estimate: Average Judgment: Good Insight: Full Hospital Course Hospital course: Mr. Cervantes is a 48 year old male who was admitted for acute opiate withdrawal and depression with suicidal ideations. He was started on Suboxone 8 mg twice a day and wanted to go into an outpatient rehabilitation facility. We discussed different antidepressant options and he was not interested in this. He had capacity to make this decision.Patient was educated of diagnosis and the risk- benefit side effects of this regimen and alternative treatment options and the risk of no treatment and he was monitored for responsiveness and side effects. Mood anxiety sleep and appetite interest improved as did future orientation. Self-harm thoughts subsided, thinking cleared, psychosis resolved, and mood stabilized. Patient was able to attend both individual and group therapy sessions as well as meet with the psychiatrist daily and urged to discuss any medication or treatment issues or other concerns. The patient was educated primarily by verbal means about their diagnosis and manifestations in their life. The option for treatment including group and individual therapy programming was offered to the patient in addition to the use of medications with all their potential risks, benefits, and side effects as well as the risks of not taking medication and non-adhereance were discussed with the patient at length. The patient was given the opportunity to ask questions and was noted to participate in the treatment in the planning process. The patient felt ready and eager to be discharged from the inpatient psychiatric unit to continue on with treatment as an outpatient. The patient agreed that is they were safe for this disposition. The patient was considered to be able to participate in informed consent and decision making with respect to medical, legal, and financial issues of the time of discharge. At the time of discharge the patient adamantly denied any concerns for lethality including suicidal or homicidal thoughts ideations or plans and was future oriented toward ongoing mental health care, medical follow-up and sobriety. Time spent discussing smoking cessation with patient: 3 to 10 minutes Does patient wish to continue nicotine replacement upon disc: No - Time Spent with Patient Total time spent providing and/or coordinating discharge services: 25 Less than 30 minutes Specific discharge activities: Interval history reviewed. Available labs reviewed . Psychotherapy provided. Patient had an opportunity to ask questions and address concerns. Patient was in agreement with the treatment plan. The risks benefits and side effects of medications were discussed with the patient, including alternatives and treatment. The patient was educated on the abstaining from any alcohol or illicit substances, following up with all scheduled appointments, and taking all medications as prescribed. The patient was educated on 90 meetings in 90 days and to find a sponsor. Assessment and Plan - Patient/Caregiver Discharge Instructions Activity: resume usual activities as tolerated Diet: regular diet Additional Instructions: Continue current medications. Follow up with outpatient mental health. Encourage continued therapy in a group or individual setting. The patient was discharged to home. - Follow up Plan Follow up with: NONE,PCP [Primary Care Provider] - Overall status at discharge: Stable Disposition: Home, Self-Care Quality - Multiple Antipsychotics Patient discharged on 2 or more antipsychotic medications: No Procedures - Procedures Procedures: Medication Management, Crisis Stabilization, Supportive Therapy, Group Therapy, Psychoeducational Therapy
[2018-11-19] MEDS ORDERED: *HR* Buprenorphine HCl 8 MG TAB.SUBL SL SCH (09:00)
[2018-11-19] MEDS: Nicotine 21 MG PATCH.TD24 TD SCH (09:02)
[2018-11-19 10:07] VITALS: BP 124/78
== END 2018-11-19 11:00 | disposition home or self-care (01) | DRG 751 ==
LOC: EMEROOARM 16:45 → 1ANU 21:13
PROVIDERS: ADMIT Psychiatry & Neurology Psychiatry; ATTEND Psychiatry & Neurology Psychiatry